=== PATIENT | female | born 1960 | race Caucasian/White ===

== ENCOUNTER → 2019-12-26 11:57 | Outpatient (CLI) | payer OTHER, SELFPAY ==
--- NOTE | ~2019-12-26 | XR_ITS ---
EXAMINATION: XR wrist LT 2V DATE: 12/26/2019 13:01 INDICATION: Left wrist pain. TECHNIQUE: 2 views of left wrist were obtained. COMPARISON: None. FINDINGS: Bone alignment is normal. No fracture. There is moderate osteoarthritis of triscaphe joint and mild osteoarthritis of first carpometacarpal joint. IMPRESSION: 1. Polyarticular osteoarthritis. Reviewed, dictated and finalized at location A.
--- NOTE | ~2019-12-26 | XR_ITS ---
EXAMINATION: XR hand LT min 3V DATE: 12/26/2019 13:01 INDICATION: Left hand pain. TECHNIQUE: 3 views of left hand were obtained. COMPARISON: None. FINDINGS: Bone alignment is normal. No fracture. There is moderate osteoarthritis of triscaphe joint and mild osteoarthritis of first carpometacarpal joint, first, second, and third metacarpophalangeal joints, and most of the interphalangeal joints. IMPRESSION: 1. Polyarticular osteoarthritis. Reviewed, dictated and finalized at location A.
== END ==
DX: M79.642 Pain in left hand (principal); M19.042 Primary osteoarthritis, left hand; M19.032 Primary osteoarthritis, left wrist
CPT/HCPCS: 73100; 73130

== ENCOUNTER → 2020-06-28 09:25 | Outpatient (CLI) | payer OTHER, SELFPAY ==
--- NOTE | ~2020-06-28 | XR_ITS ---
EXAMINATION: XR wrist RT min 3V EXAM DATE: 06/28/2020 09:41 INDICATION: pt states she has pain that starts in hand and radiates up rt wrist and arm, numbness in fingers, her job requires repetitive movements with wrist, nkt, osteoarthritis. TECHNIQUE: Right wrist frontal, frontal with ulnar deviation, oblique and lateral projections obtain ed and reviewed. There is no prior study for comparison. FINDINGS: Right wrist scapholunate joint space is maintained. There is moderate 1st carpometacarpal, mild triscaphe primary osteoarthritis. There are no acute fractures or dislocations identified. Ther e is no subcutaneous gas. The soft tissue is unremarkable. There are no radiopaque foreign bodies. IMPRESSION: Moderate right 1st CMC, mild triscaphe osteoarthritis. Reviewed, dictated and finalized at location A.
== END ==
PROVIDERS: Visit Provider Plastic Surgery
DX: M19.031 Primary osteoarthritis, right wrist (principal)
CPT/HCPCS: 73110

== ENCOUNTER 2020-06-28 10:00 | Outpatient (CLI) | payer OTHER, SELFPAY ==
--- NOTE | 2020-06-28 12:00 | NEURO_ITS ---
Impression: # Complains of pain/numbness of hands. # Subtle evolving left Carpal Tunnel Syndrome at this stage. # Normal needle/EMG exam. # Clinical correlation recommended. Nerve Conduction Studies Anti Sensory Summary Table Stim Site NR Peak (ms) P-T Amp (?V) Site1 Site2 Delta-P (ms) Dist (cm) Afshin (m/s) Left Median Anti Sensory (2-3nd Digit) Wrist 3.1 46.5 Wrist 2-3nd Digit 3.1 14.0 45 Wrist 3.3 54.5 Wrist 2-3nd Digit 3.1 14.0 45 Right Median Anti Sensory (2-3nd Digit) Wrist 3.2 23.5 Wrist 2-3nd Digit 3.2 14.0 44 Wrist 3.1 21.8 Wrist 2-3nd Digit 3.2 14.0 44 Left Radial Anti Sensory (Base 1st Digit) Wrist 2.6 6.6 Wrist Base 1st Digit 2.6 0.0 Right Radial Anti Sensory (Base 1st Digit) Wrist 2.8 9.0 Wrist Base 1st Digit 2.8 0.0 Left Ulnar Anti Sensory (5th Digit) Wrist 3.3 25.4 Wrist 5th Digit 3.3 14.0 42 Right Ulnar Anti Sensory (5th Digit) Wrist 3.6 74.4 Wrist 5th Digit 3.6 14.0 39 Motor Summary Table Stim Site NR Onset (ms) O-P Amp (mV) Site1 Site2 Delta-0 (ms) Dist (cm) Afshin (m/s) Left Median Motor (Abd Poll Brev) Wrist 3.8 3.4 Elbow Wrist 5.1 28.0 55 Elbow 8.9 6.8 Right Median Motor (Abd Poll Brev) Wrist 3.2 1.9 Elbow Wrist 4.6 27.0 59 Elbow 7.8 0.9 Left Ulnar Motor (Abd Dig Minimi) Wrist 2.6 6.9 A Elbow Wrist 5.1 28.0 55 A Elbow 7.7 6.1 Right Ulnar Motor (Abd Dig Minimi) Wrist 3.1 4.8 A Elbow Wrist 4.9 29.0 59 A Elbow 8.0 4.2 F Wave Studies NR F-Lat (ms) L-R F-Lat (ms) Left Median (Mrkrs) (Abd Poll Brev) 27.81 0.16 Right Median (Mrkrs) (Abd Poll Brev) 27.97 0.16 Left Ulnar (Mrkrs) (Abd Dig Min) 27.70 0.33 Right Ulnar (Mrkrs) (Abd Dig Min) 27.37 0.33 EMG Side Muscle Nerve Root Ins Act Fibs Amp Dur Recrt Comment Right 1stDorInt Ulnar C8-T1 Nml Nml Nml Nml Nml Right Ext Indicis Radial (Post Int) C7-8 Nml Nml Nml Nml Nml Right Ext Digitorum Radial (Post Int) C7-8 Nml Nml Nml Nml Nml Right BrachioRad Radial C5-6 Nml Nml Nml Nml Nml Right PronatorTeres Median C6-7 Nml Nml Nml Nml Nml Right Abd Poll Brev Median C8-T1 Nml Nml Nml Nml Nml Left 1stDorInt Ulnar C8-T1 Nml Nml Nml Nml Nml Left Ext Indicis Radial (Post Int) C7-8 Nml Nml Nml Nml Nml Left Ext Digitorum Radial (Post Int) C7-8 Nml Nml Nml Nml Nml Left BrachioRad Radial C5-6 Nml Nml Nml Nml Nml Left PronatorTeres Median C6-7 Nml Nml Nml Nml Nml Left Abd Poll Brev Median C8-T1 Nml Nml Nml Nml Nml MTDD
== END 2020-06-28 10:01 | disposition home or self-care (01) ==
LOC: ANHNEURO 10:02
PROVIDERS: Visit Provider Plastic Surgery
DX: R20.2 Paresthesia of skin (principal); G56.02 Carpal tunnel syndrome, left upper limb
CPT/HCPCS: 95886; 95911